=== PATIENT | male | born 1955 | race Two or more races ===

== ENCOUNTER 2017-09-22 08:21 | Outpatient (CLI) | payer OTHER | END 2017-09-22 08:23 | disposition home or self-care (01) | LOC: SONOGRAMA 08:21 | DX: E04.1 Nontoxic single thyroid nodule (principal) ==

== ENCOUNTER 2017-11-28 07:19 | Outpatient (CLI) | payer OTHER | END 2017-11-28 08:00 | disposition home or self-care (01) | LOC: NUCLEAR 07:19 | DX: E05.80 Other thyrotoxicosis without thyrotoxic crisis or storm (principal) | CPT/HCPCS: 78012; A9531 ==

== ENCOUNTER 2017-11-29 07:55 | Outpatient (CLI) | payer OTHER | END 2017-11-29 10:10 | disposition home or self-care (01) | LOC: NUCLEAR 07:55 | DX: E05.80 Other thyrotoxicosis without thyrotoxic crisis or storm (principal) | CPT/HCPCS: 78013; A9512 ==

== ENCOUNTER 2018-06-06 10:30 | Outpatient (CLI) | payer OTHER | END 2018-06-06 10:49 | disposition home or self-care (01) | LOC: NUCLEAR 10:30 | DX: E05.90 Thyrotoxicosis, unspecified without thyrotoxic crisis or storm (principal); E04.9 Nontoxic goiter, unspecified | CPT/HCPCS: 78012; A9531 ==

== ENCOUNTER → 2018-06-07 | Outpatient (CLI) | payer OTHER | END | disposition home or self-care (01) | LOC: NUCLEAR 09:00 | DX: E04.9 Nontoxic goiter, unspecified (principal) | CPT/HCPCS: 78013; A9512 ==

== ENCOUNTER → 2018-07-14 | Outpatient (CLI) | payer OTHER | END | disposition home or self-care (01) | LOC: NUCLEAR 13:13 | DX: E05.90 Thyrotoxicosis, unspecified without thyrotoxic crisis or storm (principal); E04.9 Nontoxic goiter, unspecified; E04.1 Nontoxic single thyroid nodule | CPT/HCPCS: 79005; A9517 ==

== ENCOUNTER 2019-12-14 07:50 | Outpatient (CLI) | payer OTHER | END 2019-12-14 07:51 | disposition home or self-care (01) | LOC: NUCLEAR 07:50 | PROVIDERS: ATTEND Internal Medicine Cardiovascular Disease | DX: I50.20 Unspecified systolic (congestive) heart failure (principal); R07.89 Other chest pain | CPT/HCPCS: 78452; 93017; A9500 ==

== ENCOUNTER 2022-11-26 07:24 | Outpatient (CLI) | payer OTHER | END 2022-11-26 07:28 | disposition home or self-care (01) | LOC: NUCLEAR 07:24 | PROVIDERS: ATTEND Internal Medicine Cardiovascular Disease | DX: I25.118 Atherosclerotic heart disease of native coronary artery with other forms of angina pectoris (principal) | CPT/HCPCS: 78452; 93017; A9500 ==